=== PATIENT | female | born 1980 | race Caucasian/White ===

== ENCOUNTER 2023-03-19 07:58 | Inpatient (IN) | payer OTHER ==
[2023-03-18 10:12] VITALS: BMI 28.8
[~2023-03-19 07:58] MED LIST: ONDANSETRON 4 MG/2 ML VIAL IVPUSH PRN
[2023-03-19] MEDS ORDERED: LACTATED RINGERS SOLUTION 1,000 ML IV SCH (08:00)
[2023-03-19] MEDS ORDERED: ROPIVACAINE HCL 0.5% 30ML VIAL ONE (09:32)
[2023-03-19] MEDS ORDERED: CELECOXIB 200 MG CAPSULE ONE (09:32)
[2023-03-19] MEDS ORDERED: KETAMINE HCL 100 MG/ML - 5ML VIAL ONE (09:32)
[2023-03-19] MEDS ORDERED: ACETAMINOPHEN INJECTION 100 ML IVPB ONE (09:33)
[2023-03-19] MEDS ORDERED: MIDAZOLAM HCL 2 MG/2 ML SINGLE DOSE VIAL ONE (09:39)
[2023-03-19] MEDS ORDERED: PROPOFOL 60 ML ONE (09:42)
[2023-03-19] MEDS ORDERED: BUPIVACAINE HCL/PF 0.5% (5MG/ML) 10 ML VIAL ONE (09:46)
[2023-03-19] MEDS ORDERED: PROPOFOL 40 ML ONE ×2 (10:52→11:30)
[2023-03-19] MEDS ORDERED: PROPOFOL 20 ML ONE (12:16)
[2023-03-19] MEDS ORDERED: MAG HYDROX/AL HYDROX/SIMETH 30 ML UNIT-DOSE CUP PO PRN (13:14)
[2023-03-19] MEDS ORDERED: MAGNESIUM HYDROX 2400MG/30ML ORAL SUSPENSION 30 ML CUP PO PRN (13:14)
[2023-03-19] MEDS ORDERED: FENTANYL CITRATE/PF 50 MCG/ML VIAL ONE ×2 (13:25→13:40)
[2023-03-19] MEDS ORDERED: ONDANSETRON 4 MG/2 ML VIAL ONE (13:25)
[2023-03-19] MEDS: LACTATED RINGERS SOLUTION 1,000 ML IV SCH (13:30)
[2023-03-19] MEDS: ONDANSETRON 4 MG/2 ML VIAL IVPUSH PRN (13:30)
[2023-03-19] MEDS ORDERED: HYDROmorphone HCL/PF 1 MG/ML VIAL ONE (14:16)
[2023-03-19] MEDS: HYDROmorphone HCl 2 MG/ML VIAL IVPUSH PRN (14:17)
[2023-03-19] MEDS ORDERED: oxyCODONE HCL 5 MG TABLET ONE (14:17)
[2023-03-19] MEDS: oxyCODONE HCL 5 MG TABLET PO PRN ×2 (14:19→23:52)
[2023-03-19] MEDS: oxyCODONE HCL 10 MG SUSTAINED ACTING TABLET PO SCH (17:08)
[2023-03-19] MEDS: CEFAZOLIN SODIUM 2 GM in DEXTROSE 5%-WATER 100 ML IVPB SCH (17:09)
[2023-03-19] MEDS: ASPIRIN COATED 81 MG TABLET.EC PO SCH (21:08)
[2023-03-19] MEDS: SENNOSIDES/DOCUSATE COMBO (SENNA PLUS) TABLET (UD) PO SCH (21:08)
[2023-03-19] MEDS: CELECOXIB 200 MG CAPSULE PO SCH (21:08)
[2023-03-20 08:22] LABS: HEMOGLOBIN 13.4 G/dL (10.7-15.3); MCH 28.9 pg (25.7-33.7); MCHC 32.7 g/dl (32.0-36.0); MEAN CELL VOLUME 88.4 fl (80-96); MEAN PLT VOLUME 7.6 fl (7.5-11.1); PLATELET COUNT 291.4 10^3/uL (134-434); RBC 4.64 10^6/uL (3.60-5.2); RDW 14.6 % (11.6-15.6); WHITE BLOOD COUNT 9.1 10^3/uL (4.0-10.8)
[2023-03-20 09:22] LABS: CALCIUM 8.4 mg/dl (8.5-10.1); CREATININE 0.7 mg/dl (0.6-1.3); POTASSIUM 3.9 mmol/L (3.5-5.1)
[2023-03-20] MEDS: PANTOPRAZOLE 40 MG TABLET PO SCH (09:58)
[2023-03-20] MEDS: ACETAMINOPHEN 1000 MG/100 ML BAG IVPB SCH (09:59)
[2023-03-20] MEDS: oxyCODONE HCL 5 MG TABLET PO PRN (14:46)
[2023-03-21 08:12] LABS: HEMATOCRIT 36.7 % (32.4-45.2); HEMOGLOBIN 12.1 G/dL (10.7-15.3); MCH 29.3 pg (25.7-33.7); MCHC 32.9 g/dl (32.0-36.0); MEAN CELL VOLUME 89.1 fl (80-96); MEAN PLT VOLUME 7.6 fl (7.5-11.1); PLATELET COUNT 259.4 10^3/uL (134-434); RBC 4.12 10^6/uL (3.60-5.2); RDW 14.9 % (11.6-15.6); WHITE BLOOD COUNT 8.7 10^3/uL (4.0-10.8)
[2023-03-21 08:20] LABS: CALCIUM 8.4 mg/dl (8.5-10.1); CREATININE 0.7 mg/dl (0.6-1.3); POTASSIUM 3.6 mmol/L (3.5-5.1)
[2023-03-21] MEDS: oxyCODONE HCL 5 MG TABLET PO PRN (19:19)
[2023-03-22 10:02] VITALS: BP 121/71; PULSE 87; RESP 18; TEMP 97.9
[2023-03-22] MEDS: ACETAMINOPHEN 325 MG TABLET (FP) PO SCH (10:11)
[2023-03-22] MEDS: oxyCODONE HCL 5 MG TABLET PO PRN (13:29)
== END 2023-03-22 13:46 | disposition home or self-care (01) | DRG 302 ==
LOC: FASUSAT 07:58 → FM/S 14:15 → FASUSAT 19:18
PROVIDERS: ADMIT Orthopaedic Surgery Orthopaedic Surgery of the Spine; ATTEND Orthopaedic Surgery Adult Reconstructive Orthopaedic Surgery
PROC: 0SRC0J9 Replacement of Right Knee Joint with Synthetic Substitute, Cemented, Open Approach (ICD-10-PCS; principal; 2023-03-19 10:48)
DX: M17.11 Unilateral primary osteoarthritis, right knee (principal)
CPT/HCPCS: 36415; 73560-TC-RT-FY; 80048; 81025; 85027; 88305-TC; 88311-TC; 94760; 97010-GP; 97116-GP; 97161-GP; C1713; C1776; C1889; J0131